=== PATIENT | male | born 1935 | race Caucasian/White ===

== ENCOUNTER 2024-01-02 11:14 | Inpatient (IN) | payer OTHER ==
[~2024-01-02] VITALS: Ht 180.3 cm; Wt 90.9 kg
[~2024-01-02 11:14] MED LIST: DOXY-354 PO
[2024-01-02 12:34] LABS: APPEARANCE,URINE CLEAR (CLEAR); BILIRUBIN,URINE NEGATIVE (NEGATIVE); COLOR,URINE LIGHT YELLOW (YELLOW); GLUCOSE, URINE (UA) NEGATIVE (NEGATIVE); KETONES,URINE NEGATIVE (NEGATIVE); LEUKOCYTE ESTERASE ,URINE NEGATIVE (NEGATIVE); NITRATE,URINE NEGATIVE (NEGATIVE); OCCULT BLOOD,URINE NEGATIVE (NEGATIVE); PROTEIN,URINE NEGATIVE (NEGATIVE); SPECIFIC GRAVITIY, URINE 1.012 (1.003-1.030); UROBILINOGEN,URINE <=1.0 mg/dL (<=1.0)
[2024-01-02] MEDS: SODIUM CHLORIDE 0.9% 2,750 ML IV ONE (12:56)
[2024-01-02 13:08] LABS: PROTHROMBIN TIME 10.8 SEC (9.4-11.6)
[2024-01-02 13:09] LABS: B-TYPE NATRIURETIC PEPTIDE 47 pg/mL (0-100)
[2024-01-02 13:10] LABS: ANION GAP 7 mmol/L (8-16); CALCIUM, TOTAL 8.8 mg/dL (8.8-10.5); CARBON DIOXIDE 30 mmol/L (22-29); CHLORIDE 102 mmol/L (98-107); GLOMERULAR FILTR. RATE CALC > 60 mL/min (>60); GLUCOSE,RANDOM 97 mg/dL (70-110); POTASSIUM 4.7 mmol/L (3.5-5.1); SODIUM SERUM 139 mmol/L (136-145); UREA NITROGEN, BLOOD 15 mg/dL (7-18)
[2024-01-02 13:19] LABS: LACTIC ACID 1.1 mmol/L (0.4-2.0)
[2024-01-02 13:25] LABS: ALANINE AMINOTRANSFERASE 22 U/L (12-78); ALBUMIN 3.4 g/dL (3.4-5.0); ALKALINE PHOSPHATASE 103 U/L (46-116); ASPARTATE AMINOTRANSFERASE 28 U/L (15-37); BILIRUBIN,TOTAL 1.1 mg/dL (0.1-1.0); TOTAL PROTEIN, SERUM 7.4 g/dL (6.4-8.2)
[2024-01-02 13:27] LABS: TROPONIN I-HIGH SENSITIVITY 15 ng/L (<76)
[2024-01-02] MEDS: PIPERACILLIN/TAZO 3.375 GM/D5W 50 ML IV ONE (14:33)
[2024-01-02 15:15] LABS: BASOPHILS % (AUTO) 0.8 % (0.0-2.0); EOSINOPHILS % (AUTO) 1.1 % (1.0-6.0); HEMATOCRIT 49.9 % (41-53); HEMOGLOBIN 16.3 g/dL (13.5-17.5); LYMPHOCYTES % (AUTO) 9.8 % (22.0-44.0); MEAN CORPUSCULAR HEMOGLOBIN 30.4 pg (26.0-34.0); MEAN CORPUSCULAR HGB CONC 32.6 G/dL (31.0-37.0); MEAN CORPUSCULAR VOLUME 93 fL (80-100); MONOCYTES # (AUTO) 0.9 K/uL (0.1-1.0); MONOCYTES % (AUTO) 8.9 % (2.0-9.0); NEUTROPHILS # (AUTO) 8.3 K/uL (1.8-7.7); NEUTROPHILS % (AUTO) 79.4 % (40.0-70.0); PLATELET COUNT (AUTO) 399 K/uL (150-450); RED BLOOD CELL COUNT(AUTO) 5.36 MIL/uL (4.50-5.90); RED CELL DISTRIBUTION WIDTH 16.4 % (11.5-14.5); WHITE BLOOD COUNT (AUTO) 10.4 K/uL (4.5-11.0)
[2024-01-02] MEDS: VANCOMYCIN 1GM/WATER(PEG/NADA) 200 ML IV ONE (15:26)
[2024-01-02] MEDS ORDERED: ALBUTEROL SULFATE 2.5 MG/0.5 ML NEB SOLUTION NEB PRN (17:00)
[2024-01-02] MEDS ORDERED: IPRATROPIUM BROMIDE 0.5 MG/2.5 ML NEB SOLUTION NEB PRN (17:00)
[2024-01-02] MEDS ORDERED: MAGNESIUM HYDROXIDE SUSPENSION 30 ML UDCUP PO PRN (17:00)
[2024-01-02] MEDS ORDERED: ZOLPIDEM TARTRATE 5 MG TABLET PO PRN (17:00)
[2024-01-02] MEDS ORDERED: MORPHINE SULFATE 2 MG/ML SYRINGE IVP PRN (17:00)
[2024-01-02] MEDS ORDERED: HYDROCODONE/ACETAMINOPHEN 5-325 MG TABLET PO PRN (17:00)
[2024-01-02] MEDS ORDERED: BISACODYL 10 MG RECTAL RECTAL SUPPOSITORY PR PRN (17:00)
[2024-01-02] MEDS ORDERED: ONDANSETRON HCL 4 MG/2 ML VIAL IVP PRN (17:00)
[2024-01-02] MEDS ORDERED: ACETAMINOPHEN 325 MG TABLET PO PRN (17:00)
[2024-01-02 20:22] VITALS: BP 133/79; PULSE 93; RESP 20; TEMP 97.7; O2SAT 93
[2024-01-02] MEDS: HEPARIN SODIUM,PORCINE 5,000 UNITS/ML VIAL SQ SCH (23:43)
[2024-01-03 05:30] VITALS: BP 135/82; PULSE 97; RESP 18; TEMP 97.8; O2SAT 95
[2024-01-03 07:41] VITALS: BP 134/73; PULSE 65; RESP 20; TEMP 98.1; O2SAT 94
[2024-01-03] MEDS ORDERED: SODIUM CHLORIDE 0.9% 500 ML IV ONE (07:41)
[2024-01-03] MEDS: VANCOMYCIN 1.25 GM/WATER(PEG) 250 ML IV SCH (07:43)
[2024-01-03] MEDS: PANTOPRAZOLE SODIUM 40 MG DR TABLET PO SCH (07:43)
[2024-01-03 07:50] LABS: ANION GAP 4 mmol/L (8-16); CALCIUM, TOTAL 8.9 mg/dL (8.8-10.5); CARBON DIOXIDE 31 mmol/L (22-29); CHLORIDE 106 mmol/L (98-107); CREATININE 0.98 mg/dL (0.60-1.30); GLOMERULAR FILTR. RATE CALC > 60 mL/min (>60); GLUCOSE,RANDOM 92 mg/dL (70-110); SODIUM SERUM 141 mmol/L (136-145); UREA NITROGEN, BLOOD 13 mg/dL (7-18)
[2024-01-03 15:53] VITALS: BP 117/79; PULSE 72; RESP 20; TEMP 98.6; O2SAT 94
[2024-01-03 20:00] VITALS: BP 131/77; PULSE 93; RESP 20; TEMP 97.8; O2SAT 95
[2024-01-04 04:19] VITALS: BP 137/95; PULSE 96; RESP 20; TEMP 97.8; O2SAT 95
[2024-01-04 08:17] VITALS: BP 119/63; PULSE 55; RESP 18; TEMP 98; O2SAT 90
[2024-01-04 14:23] LABS: ANION GAP 4 mmol/L (8-16); CALCIUM, TOTAL 8.8 mg/dL (8.8-10.5); CARBON DIOXIDE 34 mmol/L (22-29); CHLORIDE 102 mmol/L (98-107); GLOMERULAR FILTR. RATE CALC > 60 mL/min (>60); GLUCOSE,RANDOM 68 mg/dL (70-110); POTASSIUM 4.7 mmol/L (3.5-5.1); SODIUM SERUM 140 mmol/L (136-145); UREA NITROGEN, BLOOD 11 mg/dL (7-18)
[2024-01-04 15:21] VITALS: BP 126/69; PULSE 107; RESP 18; TEMP 97.5; O2SAT 90
[2024-01-04 19:35] VITALS: BP 96/76; PULSE 63; RESP 19; TEMP 97.6; O2SAT 94
[2024-01-04] MEDS: ETHYL ALCOHOL 62% ANTISEPTIC NASAL SANITIZER 0.6 ML AMPUL NASAL SCH (19:55)
[2024-01-04] MEDS: CARVEDILOL 3.125 MG TABLET PO SCH (19:55)
[2024-01-05 04:30] VITALS: BP 105/66; PULSE 88; RESP 18; TEMP 97.7
[2024-01-05 08:01] VITALS: BP 127/77; PULSE 61; RESP 18; TEMP 96.5; O2SAT 92
[2024-01-05] MEDS: ATORVASTATIN CALCIUM 20 MG TABLET PO SCH (08:24)
[2024-01-05] MEDS: ASPIRIN 81 MG DR TABLET PO SCH (08:25)
[2024-01-05 08:43] LABS: ANION GAP 7 mmol/L (8-16); CALCIUM, TOTAL 8.9 mg/dL (8.8-10.5); CARBON DIOXIDE 31 mmol/L (22-29); CHLORIDE 102 mmol/L (98-107); CHOL/HDL RATIO 3.5 (4.2-7.3); CHOLESTEROL 194 mg/dL (131-200); GLOMERULAR FILTR. RATE CALC > 60 mL/min (>60); GLUCOSE,RANDOM 106 mg/dL (70-110); HDL CHOLESTEROL 56 mg/dL (40-60); LDL CHOL (CALC.) 116 mg/dL (0-130); POTASSIUM 4.6 mmol/L (3.5-5.1); SODIUM SERUM 140 mmol/L (136-145); TRIGLYCERIDES 108 mg/dL (15-150); UREA NITROGEN, BLOOD 18 mg/dL (7-18); VANCOMYCIN,RANDOM 8.1 mcg/mL (25.0-50.0)
[2024-01-05] MEDS: GuaiFENesin/D-METHORPHAN [SUGAR-FREE] 200-20MG/10 ML SYRUP UDCUP PO PRN (15:18)
[2024-01-05 16:08] VITALS: BP 145/72; PULSE 68; RESP 18; TEMP 96; O2SAT 92
[2024-01-05 19:30] VITALS: BP 102/66; PULSE 71; RESP 18; TEMP 97.6; O2SAT 96
[2024-01-06 04:38] VITALS: BP 116/79; PULSE 85; RESP 18; TEMP 97.5; O2SAT 95
[2024-01-06 07:30] VITALS: BP 119/86; PULSE 76; RESP 18; TEMP 97.7; O2SAT 95
[2024-01-06 07:58] LABS: ANION GAP 5 mmol/L (8-16); CALCIUM, TOTAL 8.9 mg/dL (8.8-10.5); CARBON DIOXIDE 32 mmol/L (22-29); CHLORIDE 103 mmol/L (98-107); CREATININE 0.88 mg/dL (0.60-1.30); GLOMERULAR FILTR. RATE CALC > 60 mL/min (>60); GLUCOSE,RANDOM 94 mg/dL (70-110); POTASSIUM 4.3 mmol/L (3.5-5.1); SODIUM SERUM 140 mmol/L (136-145); UREA NITROGEN, BLOOD 22 mg/dL (7-18)
[2024-01-06] MEDS: VANCOMYCIN 750 MG/WATER(PEG) 150 ML IV SCH (11:17)
[2024-01-06] MEDS: LORazepam 2 MG/ML VIAL IVP ONE (13:49)
[2024-01-06 15:50] VITALS: BP 114/69; PULSE 69; RESP 18; TEMP 97.6; O2SAT 94
[2024-01-06 20:15] VITALS: BP 96/52; PULSE 94; RESP 18; TEMP 97.6; O2SAT 93
[2024-01-07 03:25] VITALS: BP 128/73; PULSE 76; RESP 18; TEMP 97.6; O2SAT 93
[2024-01-07 07:28] LABS: ANION GAP 6 mmol/L (8-16); CALCIUM, TOTAL 8.5 mg/dL (8.8-10.5); CARBON DIOXIDE 30 mmol/L (22-29); CHLORIDE 103 mmol/L (98-107); CREATININE 0.83 mg/dL (0.60-1.30); GLOMERULAR FILTR. RATE CALC > 60 mL/min (>60); GLUCOSE,RANDOM 90 mg/dL (70-110); POTASSIUM 4.3 mmol/L (3.5-5.1); SODIUM SERUM 139 mmol/L (136-145); UREA NITROGEN, BLOOD 22 mg/dL (7-18); VANCOMYCIN,RANDOM 17.3 mcg/mL (25.0-50.0)
[2024-01-07 09:01] VITALS: BP 133/73; PULSE 55; RESP 18; O2SAT 88
[2024-01-07 09:27] VITALS: TEMP 97.7; O2SAT 94
[2024-01-07] MEDS ORDERED: PEG 400/HYPROMELLOSE/GLYCERIN 15 ML OPHTHALMIC SOLUTION OU PRN (14:45)
[2024-01-07 14:57] LABS: BASOPHILS % (AUTO) 0.7 % (0.0-2.0); EOSINOPHILS % (AUTO) 2.7 % (1.0-6.0); HEMOGLOBIN 17.7 g/dL (13.5-17.5); LYMPHOCYTES # (AUTO) 1.5 K/uL (1.0-4.8); LYMPHOCYTES % (AUTO) 17.8 % (22.0-44.0); MEAN CORPUSCULAR HEMOGLOBIN 29.9 pg (26.0-34.0); MEAN CORPUSCULAR VOLUME 93 fL (80-100); MONOCYTES # (AUTO) 0.8 K/uL (0.1-1.0); MONOCYTES % (AUTO) 9.1 % (2.0-9.0); NEUTROPHILS # (AUTO) 5.9 K/uL (1.8-7.7); NEUTROPHILS % (AUTO) 69.7 % (40.0-70.0); PLATELET COUNT (AUTO) 407 K/uL (150-450); RED BLOOD CELL COUNT(AUTO) 5.91 MIL/uL (4.50-5.90); RED CELL DISTRIBUTION WIDTH 16.7 % (11.5-14.5); WHITE BLOOD COUNT (AUTO) 8.4 K/uL (4.5-11.0)
[2024-01-07 15:01] LABS: HEMATOCRIT 55.2 % (41-53)
[2024-01-07 16:09] VITALS: BP 147/95; PULSE 81; RESP 18; TEMP 96.5; O2SAT 96
[2024-01-07 19:55] VITALS: BP 115/60; PULSE 61; RESP 18; TEMP 97.8; O2SAT 92
[2024-01-08] VITALS (19 sets, daily range): BP systolic 96–144; BP diastolic 61–86; PULSE 59–97; RESP 18–20; TEMP 96.6–97.8; O2SAT 90–95
[2024-01-08] MEDS ORDERED: IODIXANOL 320 MG/ML 150 ML VIAL ONE (06:05)
[2024-01-08] MEDS ORDERED: SODIUM BICARBONATE 50 MEQ/50 ML VIAL ONE (06:05)
[2024-01-08] MEDS ORDERED: LIDOCAINE/PF 1% 30 ML VIAL ONE (06:05)
[2024-01-08] MEDS ORDERED: HEPARIN SODIUM 1000 UNITS/NS 500 ML ONE (06:05)
[2024-01-08] MEDS ORDERED: FentaNYL CITRATE PF 100 MCG/2 ML VIAL ONE (06:55)
[2024-01-08] MEDS ORDERED: MIDAZOLAM HCL 2 MG/2 ML VIAL ONE (06:55)
[2024-01-08] MEDS ORDERED: VERAPAMIL HCL 2.5 MG/ML 2 ML VIAL ONE (07:15)
[2024-01-08] MEDS ORDERED: NITROGLYCERIN 50 MG/D5% WATER 250 ML ONE (07:15)
[2024-01-08] MEDS: LIDOCAINE 1% 30 ML/SOD BICARB 8.4% 4 ML SQ ONE (08:03)
[2024-01-08] MEDS: FentaNYL CITRATE PF 100 MCG/2 ML VIAL IVP ONE ×2 (08:03→08:07)
[2024-01-08] MEDS: VERAPAMIL HCL 2.5 MG/ML 2 ML VIAL IARTER ONE (08:04)
[2024-01-08] MEDS: HEPARIN SODIUM,PORCINE 1,000 UNITS/ML 10 ML VIAL IARTER ONE (08:04)
[2024-01-08] MEDS: HEPARIN SODIUM 1000 UNITS/NS 1,000 ML IARTER ONE (08:06)
[2024-01-08] MEDS: NITROGLYCERIN/D5W 50 MG/250 ML IV BOTTLE IARTER ONE (08:06)
[2024-01-08] MEDS: IODIXANOL 320 MG/ML 150 ML VIAL IARTER ONE (08:07)
[2024-01-08] MEDS: IODIXANOL 320 MG/ML 100 ML VIAL IARTER ONE (08:07)
[2024-01-08] MEDS ORDERED: HEPARIN SODIUM,PORCINE 1,000 UNITS/ML 10 ML VIAL IVP ONE (08:45)
[2024-01-08] MEDS ORDERED: FentaNYL CITRATE PF 100 MCG/2 ML VIAL IVP ONE (08:45)
[2024-01-08 11:28] LABS: BASOPHILS % (AUTO) 0.5 % (0.0-2.0); EOSINOPHILS % (AUTO) 2.1 % (1.0-6.0); HEMATOCRIT 48.1 % (41-53); HEMOGLOBIN 15.7 g/dL (13.5-17.5); LYMPHOCYTES % (AUTO) 13.4 % (22.0-44.0); MEAN CORPUSCULAR HGB CONC 32.6 G/dL (31.0-37.0); MEAN CORPUSCULAR VOLUME 92 fL (80-100); MONOCYTES # (AUTO) 0.7 K/uL (0.1-1.0); MONOCYTES % (AUTO) 9.4 % (2.0-9.0); NEUTROPHILS # (AUTO) 5.7 K/uL (1.8-7.7); NEUTROPHILS % (AUTO) 74.6 % (40.0-70.0); PLATELET COUNT (AUTO) 346 K/uL (150-450); RED BLOOD CELL COUNT(AUTO) 5.23 MIL/uL (4.50-5.90); RED CELL DISTRIBUTION WIDTH 16.1 % (11.5-14.5); WHITE BLOOD COUNT (AUTO) 7.6 K/uL (4.5-11.0)
[2024-01-08 11:50] LABS: ANION GAP 4 mmol/L (8-16); CALCIUM, TOTAL 8.2 mg/dL (8.8-10.5); CARBON DIOXIDE 32 mmol/L (22-29); CHLORIDE 104 mmol/L (98-107); CREATININE 0.96 mg/dL (0.60-1.30); GLOMERULAR FILTR. RATE CALC > 60 mL/min (>60); GLUCOSE,RANDOM 93 mg/dL (70-110); POTASSIUM 4.2 mmol/L (3.5-5.1); SODIUM SERUM 140 mmol/L (136-145); UREA NITROGEN, BLOOD 21 mg/dL (7-18)
[2024-01-09] VITALS: PULSE 58; PULSE 62
[2024-01-09 04:15] VITALS: BP 112/77; PULSE 79; RESP 18; TEMP 98.1; O2SAT 93
[2024-01-09 07:02] LABS: ANION GAP 6 mmol/L (8-16); CALCIUM, TOTAL 8.4 mg/dL (8.8-10.5); CARBON DIOXIDE 27 mmol/L (22-29); CHLORIDE 105 mmol/L (98-107); CREATININE 0.77 mg/dL (0.60-1.30); GLOMERULAR FILTR. RATE CALC > 60 mL/min (>60); GLUCOSE,RANDOM 103 mg/dL (70-110); POTASSIUM 4.1 mmol/L (3.5-5.1); SODIUM SERUM 138 mmol/L (136-145); UREA NITROGEN, BLOOD 17 mg/dL (7-18)
[2024-01-09 08:22] VITALS: BP 108/69; PULSE 69; RESP 17; TEMP 97.7; O2SAT 91
[2024-01-09] MEDS: LOSARTAN POTASSIUM 25 MG TABLET PO SCH (09:17)
[2024-01-09 15:44] VITALS: BP 106/57; PULSE 53; RESP 18; TEMP 96.6; O2SAT 93
[2024-01-09 19:48] VITALS: BP 95/51; PULSE 93; RESP 18; TEMP 98.2; O2SAT 93
[2024-01-09 21:07] VITALS: BP 114/63; RESP 18; O2SAT 92
[2024-01-10 05:24] VITALS: BP 115/68; PULSE 85; RESP 18; TEMP 97.9; O2SAT 95
[2024-01-10 07:36] VITALS: BP 116/66; PULSE 80; RESP 20; TEMP 97.9; O2SAT 94
[2024-01-10 07:58] LABS: ANION GAP 5 mmol/L (8-16); CALCIUM, TOTAL 8.8 mg/dL (8.8-10.5); CARBON DIOXIDE 30 mmol/L (22-29); CHLORIDE 105 mmol/L (98-107); CREATININE 0.86 mg/dL (0.60-1.30); GLOMERULAR FILTR. RATE CALC > 60 mL/min (>60); GLUCOSE,RANDOM 94 mg/dL (70-110); POTASSIUM 4.3 mmol/L (3.5-5.1); SODIUM SERUM 140 mmol/L (136-145); UREA NITROGEN, BLOOD 17 mg/dL (7-18)
[2024-01-10 15:34] VITALS: BP 121/63; PULSE 72; RESP 20; TEMP 97.7; O2SAT 93
== END 2024-01-10 17:00 | DRG 300 ==
LOC: EMS 11:14 → EDH 17:01 → 4E 20:10
PROVIDERS: ADMIT Hospitalist; ATTEND Hospitalist
PROC: B41D1ZZ Fluoroscopy of Aorta and Bilateral Lower Extremity Arteries using Low Osmolar Contrast (ICD-10-PCS; principal; 2024-01-08)
PROC: B3111ZZ Fluoroscopy of Right Brachiocephalic-Subclavian Artery using Low Osmolar Contrast (ICD-10-PCS; 2024-01-08)
PROC: B4141ZZ Fluoroscopy of Superior Mesenteric Artery using Low Osmolar Contrast (ICD-10-PCS; 2024-01-08)
PROC: B41J1ZZ Fluoroscopy of Other Lower Arteries using Low Osmolar Contrast (ICD-10-PCS; 2024-01-08)
DX: I70.292 Other atherosclerosis of native arteries of extremities, left leg (principal); L03.115 Cellulitis of right lower limb; L03.116 Cellulitis of left lower limb; I48.0 Paroxysmal atrial fibrillation; I25.5 Ischemic cardiomyopathy; J98.4 Other disorders of lung; L97.529 Non-pressure chronic ulcer of other part of left foot with unspecified severity; J44.9 Chronic obstructive pulmonary disease, unspecified; Z87.891 Personal history of nicotine dependence; F03.90 Unspecified dementia, unspecified severity, without behavioral disturbance, psychotic disturbance, mood disturbance, and anxiety
CPT/HCPCS: 36200; 71045; 75630; 75716; 80048; 80053; 80061; 80202; 81003; 83605; 83880; 84145; 84484; 85025; 85610; 87040; 87081; 93005; 97110; 97116; 97162; 97167; 97530; 97535; 99285; G0378; J1644; J2060; J2250; J2543; J3010; J3490; J7040; Q9967; 36415-L1; 36415-TC; Z7610